=== PATIENT | male | born 1995 | race American Indian/Alaskan Native ===

== ENCOUNTER 2020-09-09 15:04 | Emergency (ER) | payer SELFPAY ==
[2020-09-09 16:34] VITALS: BP 138/75
--- NOTE | 2020-09-09 16:45 | Emergency Department Report ---
ED Male HPI - General Chief complaint: Urogenital-Male Stated complaint: STD Time Seen by Provider: 09/09/20 16:39 Source: patient Mode of arrival: Ambulatory Limitations: No Limitations - History of Present Illness Initial comments: Exposure to Trichomonasis but not having symptoms. Had a STD test but nothing was told about this issue so he presents to ED for treatment. -: Gradual Location: penis Radiation: none Severity scale (0 -10): 0 Improves with: none Worsens with: none denies other symptoms - Related Data Previous Rx's Medication Instructions Recorded Last Taken Type Dicyclomine [Bentyl] 10 mg PO QID PRN #20 capsule 07/03/18 Unknown Rx Ondansetron [Zofran Odt] 4 mg PO TID PRN #21 tab.rapdis 07/03/18 Unknown Rx metroNIDAZOLE [Flagyl] 2,000 mg PO ONCE #4 tablet 09/09/20 Unknown Rx Allergies Allergy/AdvReac Type Severity Reaction Status Date / Time No Known Allergies Allergy Unverified 07/03/18 20:57 ED Review of Systems ROS: Stated complaint: STD Other details as noted in HPI Comment: All other systems reviewed and negative ED Past Medical Hx - Past Medical History Previous Medical History?: No - Surgical History Past Surgical History?: No - Social History Smoking Status: Former Smoker Substance Use Type: Alcohol, Marijuana - Medications Home Medications: Home Medications Medication Instructions Recorded Confirmed Last Taken Type Dicyclomine [Bentyl] 10 mg PO QID PRN #20 capsule 07/03/18 Unknown Rx Ondansetron [Zofran Odt] 4 mg PO TID PRN #21 tab.rapdis 07/03/18 Unknown Rx metroNIDAZOLE [Flagyl] 2,000 mg PO ONCE #4 tablet 09/09/20 Unknown Rx ED Physical Exam - General Limitations: No Limitations General appearance: alert, in no apparent distress - Head Head exam: Present: atraumatic, normocephalic - Eye Eye exam: Present: normal appearance, PERRL Pupils: Present: normal accommodation - ENT ENT exam: Present: normal exam, mucous membranes moist - Neck Neck exam: Present: normal inspection - Respiratory Respiratory exam: Present: normal lung sounds bilaterally. Absent: respiratory distress - Cardiovascular Cardiovascular Exam: Present: regular rate, normal rhythm. Absent: systolic murmur, diastolic murmur, rubs, gallop - GI/Abdominal GI/Abdominal exam: Present: soft, normal bowel sounds - Rectal Rectal exam: Present: deferred - Extremities Exam Extremities exam: Present: normal inspection - Back Exam Back exam: Present: normal inspection - Neurological Exam Neurological exam: Present: alert, oriented X3 - Psychiatric Psychiatric exam: Present: normal affect, normal mood - Skin Skin exam: Present: warm, dry, intact, normal color. Absent: rash ED Course Vital Signs 09/09/20 16:33 Temperature 98.5 F Pulse Rate 84 Respiratory 18 Rate Blood Pressure 138/75 [Right] O2 Sat by Pulse 100 Oximetry Critical care attestation.: If time is entered above; I have spent that time in minutes in the direct care of this critically ill patient, excluding procedure time. ED Disposition Clinical Impression: Possible exposure to STD Disposition: - TO HOME OR SELFCARE Is pt being admited?: No Does the pt Need Aspirin: No Condition: Stable Instructions: Trichomoniasis Prescriptions: metroNIDAZOLE [Flagyl] 2,000 mg PO ONCE #4 tablet Referrals: OUSMANE STACK MD [Primary Care Provider] - 3-5 Days RATNA CAMPOS MD [Staff Physician] - 3-5 Days [facility] [Provider Group] - 3-5 Days
== END 2020-09-09 18:04 | disposition home or self-care (01) ==
LOC: ED 15:04
DX: F12.90 Cannabis use, unspecified, uncomplicated (principal); Z79.899 Other long term (current) drug therapy; Z87.891 Personal history of nicotine dependence; Z20.2 Contact with and (suspected) exposure to infections with a predominantly sexual mode of transmission
CPT/HCPCS: 99282

== ENCOUNTER 2020-12-04 14:10 | Emergency (ER) | payer SELFPAY ==
--- NOTE | 2020-12-04 15:34 | Event Note ---
ED Screening Note ED Screening Note: Patient is a 25-year-old male who presents emergency room after an overdose EMS placed patient into the waiting room after speaking with charge nurse and PAYAL Jacinto According to the EMS note patient had pinpoint pupils and was unresponsive and given 2 mg of Narcan He was awake and alert after receiving the Narcan He states he currently feels nauseous and having vomiting but otherwise has no other complaints He reports that he took 30 mg of roxicodone and drank a Monster energy drink He denies any other drug use or alcohol use He denies any SI or HI This initial assessment/diagnostic orders/clinical plan/treatment(s) is/are subject to change based on patients health status, clinical progression and re- assessment by fellow clinical providers in the ED. Further treatment and workup at subsequent clinical providers discretion. Patient/guardian urged not to elope from the ED as their condition may be serious if not clinically assessed and managed. Initial orders include: Labs, EKG, needs to be on radiographer cardiac catheterization and observed, ua Discussed case with Dr. Mcbride, ER attending
[2020-12-04 16:07] VITALS: BP 105/58
[2020-12-04 17:00] LABS: Basophils % (Auto) 0.4 % (0.0-1.8); Eosinophils % (Auto) 0.1 % (0.0-4.3); Hematocrit 42.3 % (35.5-45.6); Hemoglobin 14.3 gm/dl (11.8-15.2); Lymphocytes # (Auto) 1.2 K/mm3 (1.2-5.4); Lymphocytes % (Auto) 13.1 % (13.4-35.0); Mean Corpuscular HGB Conc 34 % (32-34); Mean Corpuscular Volume 93 fl (84-94); Monocytes # (Auto) 0.6 K/mm3 (0.0-0.8); Monocytes % (Auto) 6.5 % (0.0-7.3); Platelet Count 241 K/mm3 (140-440); Red Blood Count 4.54 M/mm3 (3.65-5.03); Red Cell Distribution Width 14.1 % (13.2-15.2)
[2020-12-04 17:20] LABS: Alanine Aminotransferase 26 units/L (7-56); Albumin 4.6 g/dL (3.9-5); BUN/Creatinine Ratio 9; Blood Urea Nitrogen 8 mg/dL (9-20); Calcium 9.2 mg/dL (8.4-10.2); Hemolysis Index 5
--- NOTE | 2020-12-05 10:52 | Electrocardiograph Report ---
[facility] Test Date: 2020-12-04 Test Time: 15:47:20 Pat Name: DIDI YA Department: Room: Gender: M Hr Payroll Coordinator: NATAN : 1995 Requested By: EDUARDO LOMAX Order Number: [id number] Reading MD: Garland Abreu Measurements Intervals [place] Rate: 65 P: 76 VT: 134 QRS: 49 QRSD: 72 T: 37 QT: 389 QTc: 402 Interpretive Statements Sinus rhythm Atrial premature complex No previous ECG available for comparison Electronically Signed On 12-05-2020 10:52:34 EDT by Garland Abreu
== END 2020-12-04 19:06 | disposition left against medical advice (07) ==
LOC: ED 14:10
DX: Z53.21 Procedure and treatment not carried out due to patient leaving prior to being seen by health care provider (principal)
CPT/HCPCS: 36415; 80053; 80320; 82550; 83735; 85025; 93005; G0480